=== PATIENT | female | born 1930 | race Caucasian/White ===

== ENCOUNTER 2019-06-27 08:50 | Inpatient (IN) | payer MEDICARE, OTHER ==
[2019-06-27] MEDS: NITROGLYCERIN 2% 1 GM OINT PKT TD (09:15)
[2019-06-27 09:18] LABS: ADD MAN DIFF? NO
[2019-06-27 09:22] LABS: WHITE BLOOD COUNT 8.2 10^3/ul (4.8-10.8)
[2019-06-27 09:22] LABS: BASOPHILS % 0.2 % (0.0-2.0); EOSINOPHILS % 0.1 % (0.0-7.0); HEMATOCRIT 34.1 % (37.0-47.0); HEMOGLOBIN 10.8 g/dl (12.0-16.0); LYMPHOCYTES % 12.1 % (15.0-51.0); MEAN CORPUSCULAR HEMOGLOBIN 30.3 pg (29.0-33.0); MEAN CORPUSCULAR HGB CONC 31.7 g/dl (32.0-37.0); MEAN CORPUSCULAR VOLUME 95.5 fl (82.0-101.0); MEAN PLATELET VOLUME 9.7 fl (7.4-10.4); MONOCYTE # 0.5 10^3/ul (0.3-0.9); MONOCYTES % 6.5 % (0.0-11.0); NEUTROPHIL # 6.5 10^3/ul (1.6-7.5); NEUTROPHILS % 79.9 % (39.0-77.0); PLATELET COUNT 512 10^3/UL (140-415); RED BLOOD COUNT 3.57 10^6/ul (4.20-5.40); RED CELL DISTRIBUTION WIDTH 13.3 % (11.5-14.5)
[2019-06-27 09:42] LABS: INR 1.16; PROTIME 14.9 Sec (11.9-14.9); PT RATIO 1.2
[2019-06-27 09:43] LABS: PARTIAL THROMBOPLASTIN TIME 24.6 Sec (23.0-35.0)
[2019-06-27 09:51] LABS: ALANINE AMINOTRANSFERASE 29 IU/L (13-69); ALBUMIN 3.4 g/dl (3.3-4.9); ALBUMIN/GLOBULIN RATIO 1.06; ALKALINE PHOSPHATASE 52 IU/L (42-121); ANION GAP 8 (5-13); ASPARTATE AMINO TRANSFERASE 18 IU/L (15-46); BILIRUBIN,INDIRECT 0.4 mg/dl (0-1.1); BILIRUBIN,TOTAL 0.4 mg/dl (0.2-1.3); BLOOD UREA NITROGEN 19 mg/dl (7-20); CALCIUM 10.7 mg/dl (8.4-10.2); CARBON DIOXIDE 28 mmol/L (21-31); CHLORIDE 103 mmol/L (97-110); CREATININE 0.61 mg/dl (0.44-1.00); GLUCOSE 279 mg/dl (70-220); SODIUM 139 mmol/L (135-144); TOTAL PROTEIN 6.6 g/dl (6.1-8.1)
[2019-06-27] MEDS: FUROSEMIDE 40 MG INJ IV (09:58)
[2019-06-27 10:02] LABS: B-TYPE NATRIURETIC PEPTIDE 13000 PG/ML (0-450); TROPONIN-I 0.028 ng/ml (0.000-0.120)
[2019-06-27 11:27] LABS: LACTIC ACID 2.3 mmol/L (0.5-2.0)
[2019-06-27] MEDS ORDERED: ONDANSETRON 4 MG INJ IV ×2 (11:30→14:00)
[2019-06-27] MEDS ORDERED: ACETAMINOPHEN 325 MG TAB PO (11:30)
[2019-06-27] MEDS ORDERED: NACL 0.9% 3 ML SYG IV (14:00)
[2019-06-27] MEDS ORDERED: ZOLPIDEM 5 MG TAB PO (14:00)
[2019-06-27] MEDS ORDERED: HYDROCODONE/APAP (5/325) TAB PO (14:00)
[2019-06-27] MEDS ORDERED: BISACODYL 10 MG SUPP PR (14:00)
[2019-06-27] MEDS ORDERED: GLUCOSE GEL 15 GRAM TUBE BUCCAL (15:00)
[2019-06-27] MEDS ORDERED: GLUCAGON 1 MG INJ IM (15:00)
[2019-06-27] MEDS ORDERED: DEXTROSE 50% 50 ML SYRINGE IV (15:00)
[2019-06-27] MEDS ORDERED: GLUCOSE GEL 15 GRAM TUBE PO ×2 (15:00)
[2019-06-27 16:14] LABS: CREATINE KINASE 40 IU/L (23-200)
[2019-06-27 16:14] LABS: LACTIC ACID 1.1 mmol/L (0.5-2.0)
[2019-06-27 16:23] LABS: CK INDEX 9.7; CK-MB 3.89 ng/ml (0.0-2.4); TROPONIN-I 0.036 ng/ml (0.000-0.120)
[2019-06-27] MEDS: INSULIN ASPART [NOVOLOG] 3 ML PEN SC ×2 (16:46→21:04)
[2019-06-27] MEDS ORDERED: INSULIN ASPART [NOVOLOG] 3 ML PEN SC (18:00)
[2019-06-27] MEDS: SPIRONOLACTONE 25 MG TAB PO (18:24)
[2019-06-27] MEDS: FUROSEMIDE 20 MG INJ IV (18:24)
[2019-06-27] MEDS: APIXABAN 5 MG TABLET PO (20:56)
[2019-06-27] MEDS: METOPROLOL (XL) 25 MG TAB PO (20:56)
[2019-06-27] MEDS: INSULIN GLARGINE [LANTus] (100 UNITS/ML) SYG SC (21:04)
[2019-06-27 22:23] LABS: CREATINE KINASE 31 IU/L (23-200)
[2019-06-27 22:36] LABS: CK INDEX 9.4; TROPONIN-I 0.044 ng/ml (0.000-0.120)
[2019-06-27 23:12] LABS: PROCALCITONIN 1.11 ng/mL (0.00-0.10)
[2019-06-28] MEDS ORDERED: ACCU-CHEK XX (02:00)
[2019-06-28] MEDS: INSULIN ASPART [NOVOLOG] 3 ML PEN SC ×6 (02:08→21:17)
[2019-06-28] MEDS: ACCU-CHEK XX (02:08)
[2019-06-28] MEDS: FUROSEMIDE 20 MG INJ IV ×2 (05:29→17:23)
[2019-06-28 06:17] LABS: ADD MAN DIFF? NO
[2019-06-28 06:27] LABS: WHITE BLOOD COUNT 7.1 10^3/ul (4.8-10.8)
[2019-06-28 06:27] LABS: BASOPHILS % 0.6 % (0.0-2.0); EOSINOPHILS # 0.1 10^3/ul (0.0-0.5); EOSINOPHILS % 1.5 % (0.0-7.0); HEMATOCRIT 32.2 % (37.0-47.0); HEMOGLOBIN 10.4 g/dl (12.0-16.0); LYMPHOCYTES # 1.7 10^3/ul (0.8-2.9); LYMPHOCYTES % 23.8 % (15.0-51.0); MEAN CORPUSCULAR HEMOGLOBIN 30.1 pg (29.0-33.0); MEAN CORPUSCULAR HGB CONC 32.3 g/dl (32.0-37.0); MEAN CORPUSCULAR VOLUME 93.1 fl (82.0-101.0); MEAN PLATELET VOLUME 9.5 fl (7.4-10.4); MONOCYTE # 0.6 10^3/ul (0.3-0.9); MONOCYTES % 8.5 % (0.0-11.0); NEUTROPHIL # 4.6 10^3/ul (1.6-7.5); NEUTROPHILS % 64.8 % (39.0-77.0); PLATELET COUNT 502 10^3/UL (140-415); RED BLOOD COUNT 3.46 10^6/ul (4.20-5.40); RED CELL DISTRIBUTION WIDTH 13.5 % (11.5-14.5)
[2019-06-28 06:47] LABS: MAGNESIUM 1.4 mg/dl (1.7-2.5)
[2019-06-28 06:47] LABS: PHOSPHORUS 3.1 mg/dl (2.5-4.9)
[2019-06-28 06:53] LABS: ALANINE AMINOTRANSFERASE 29 IU/L (13-69); ALBUMIN 3.2 g/dl (3.3-4.9); ALKALINE PHOSPHATASE 49 IU/L (42-121); ANION GAP 5 (5-13); ASPARTATE AMINO TRANSFERASE 17 IU/L (15-46); BILIRUBIN,INDIRECT 0.6 mg/dl (0-1.1); BILIRUBIN,TOTAL 0.6 mg/dl (0.2-1.3); BLOOD UREA NITROGEN 16 mg/dl (7-20); CALCIUM 10.3 mg/dl (8.4-10.2); CARBON DIOXIDE 36 mmol/L (21-31); CHLORIDE 97 mmol/L (97-110); CREATININE 0.64 mg/dl (0.44-1.00); GLUCOSE 172 mg/dl (70-220); POTASSIUM 3.4 mmol/L (3.5-5.1); SODIUM 138 mmol/L (135-144); TOTAL PROTEIN 6.1 g/dl (6.1-8.1)
[2019-06-28 06:56] LABS: B-TYPE NATRIURETIC PEPTIDE 13000 PG/ML (0-450)
[2019-06-28 06:59] LABS: DIGOXIN < 0.4 ng/ml (1.0-2.0)
[2019-06-28 07:06] LABS: FREE T4 (FREE THYROXINE) 1.35 ng/dl (0.85-1.93)
[2019-06-28 07:18] LABS: THYROID STIMULATING HORMONE 0.419 MIU/L (0.465-4.680)
[2019-06-28] MEDS: METOPROLOL (XL) 25 MG TAB PO ×2 (08:09→21:00)
[2019-06-28] MEDS: DONEPEZIL 10 MG TAB PO (08:10)
[2019-06-28] MEDS: LOSARTAN 50 MG TAB PO ×2 (08:10→21:00)
[2019-06-28] MEDS: OXYBUTYNIN (XL) 5 MG TAB PO (08:10)
[2019-06-28] MEDS: SPIRONOLACTONE 25 MG TAB PO (08:10)
[2019-06-28] MEDS: ESCITALOPRAM 10 MG TAB PO (08:10)
[2019-06-28] MEDS: MEMANTINE 10 MG TAB PO (08:10)
[2019-06-28] MEDS: ASPIRIN (EC) 81 MG TAB PO (08:11)
[2019-06-28] MEDS: LEVOTHYROXINE 75 MCG TAB PO (08:11)
[2019-06-28] MEDS: APIXABAN 5 MG TABLET PO ×2 (08:11→21:00)
[2019-06-28] MEDS ORDERED: ENOXAPARIN 40 MG/0.4 ML SYG SC (09:00)
[2019-06-28] MEDS ORDERED: AMLODIPINE 5 MG TAB PO (09:00)
[2019-06-28] MEDS: ACETAMINOPHEN 325 MG TAB PO (09:13)
[2019-06-28 09:17] LABS: HEMOGLOBIN A1C 7.2 % (0-5.9)
[2019-06-28] MEDS: morphine 2 MG INJ IV (10:33)
[2019-06-28 12:27] LABS: TROPONIN-I 0.029 ng/ml (0.000-0.120)
[2019-06-28] MEDS: INSULIN GLARGINE [LANTus] (100 UNITS/ML) SYG SC (21:17)
[2019-06-29] MEDS: FUROSEMIDE 20 MG INJ IV ×4 (00:39→21:29)
[2019-06-29] MEDS: INSULIN ASPART [NOVOLOG] 3 ML PEN SC ×6 (01:01→20:58)
[2019-06-29] MEDS: ACCU-CHEK XX (01:03)
[2019-06-29 06:06] LABS: ADD MAN DIFF? NO
[2019-06-29 06:13] LABS: BASOPHILS % 0.6 % (0.0-2.0); EOSINOPHILS # 0.2 10^3/ul (0.0-0.5); EOSINOPHILS % 2.3 % (0.0-7.0); HEMOGLOBIN 10.7 g/dl (12.0-16.0); LYMPHOCYTES # 1.8 10^3/ul (0.8-2.9); LYMPHOCYTES % 26.5 % (15.0-51.0); MEAN CORPUSCULAR HEMOGLOBIN 30.3 pg (29.0-33.0); MEAN CORPUSCULAR HGB CONC 32.4 g/dl (32.0-37.0); MEAN CORPUSCULAR VOLUME 93.5 fl (82.0-101.0); MEAN PLATELET VOLUME 9.2 fl (7.4-10.4); MONOCYTE # 0.6 10^3/ul (0.3-0.9); MONOCYTES % 9.2 % (0.0-11.0); NEUTROPHIL # 4.2 10^3/ul (1.6-7.5); NEUTROPHILS % 60.8 % (39.0-77.0); PLATELET COUNT 474 10^3/UL (140-415); RED BLOOD COUNT 3.53 10^6/ul (4.20-5.40); RED CELL DISTRIBUTION WIDTH 13.8 % (11.5-14.5)
[2019-06-29 06:13] LABS: WHITE BLOOD COUNT 6.9 10^3/ul (4.8-10.8)
[2019-06-29 06:32] LABS: MAGNESIUM 1.3 mg/dl (1.7-2.5)
[2019-06-29 06:32] LABS: PHOSPHORUS 3.5 mg/dl (2.5-4.9)
[2019-06-29 06:36] LABS: ALANINE AMINOTRANSFERASE 26 IU/L (13-69); ALBUMIN 3.3 g/dl (3.3-4.9); ALBUMIN/GLOBULIN RATIO 1.22; ALKALINE PHOSPHATASE 48 IU/L (42-121); ANION GAP 5 (5-13); ASPARTATE AMINO TRANSFERASE 22 IU/L (15-46); BILIRUBIN,INDIRECT 0.6 mg/dl (0-1.1); BILIRUBIN,TOTAL 0.6 mg/dl (0.2-1.3); BLOOD UREA NITROGEN 15 mg/dl (7-20); CALCIUM 10.5 mg/dl (8.4-10.2); CARBON DIOXIDE 40 mmol/L (21-31); CHLORIDE 92 mmol/L (97-110); CREATININE 0.62 mg/dl (0.44-1.00); GLUCOSE 164 mg/dl (70-220); POTASSIUM 3.2 mmol/L (3.5-5.1); SODIUM 137 mmol/L (135-144)
[2019-06-29 06:45] LABS: TROPONIN-I 0.043 ng/ml (0.000-0.120)
[2019-06-29 06:58] LABS: FREE T4 (FREE THYROXINE) 1.18 ng/dl (0.85-1.93)
[2019-06-29 07:04] LABS: TRIIODOTHYRONINE 0.43 ng/ml (0.97-1.69)
[2019-06-29 07:48] LABS: B-TYPE NATRIURETIC PEPTIDE 15300 PG/ML (0-450)
[2019-06-29] MEDS: LEVOTHYROXINE 75 MCG TAB PO ×2 (08:29→09:50)
[2019-06-29] MEDS: DONEPEZIL 10 MG TAB PO (08:30)
[2019-06-29] MEDS: APIXABAN 5 MG TABLET PO ×2 (08:30→09:50)
[2019-06-29] MEDS: OXYBUTYNIN (XL) 5 MG TAB PO ×2 (08:30→09:50)
[2019-06-29] MEDS: LOSARTAN 50 MG TAB PO ×3 (08:30→20:54)
[2019-06-29] MEDS: SPIRONOLACTONE 25 MG TAB PO ×2 (08:30→09:48)
[2019-06-29] MEDS: METOPROLOL (XL) 25 MG TAB PO ×3 (08:31→20:54)
[2019-06-29] MEDS: MEMANTINE 10 MG TAB PO (08:31)
[2019-06-29] MEDS: ESCITALOPRAM 10 MG TAB PO (08:31)
[2019-06-29] MEDS: ASPIRIN (EC) 81 MG TAB PO ×2 (08:31→09:49)
[2019-06-29] MEDS: POTASSIUM CHLORIDE 100 ML IVPB ×2 (09:53→12:13)
[2019-06-29] MEDS: MAGNESIUM SULFATE 4 GM/100 ML 100 ML IVPB (11:52)
[2019-06-29] MEDS: INSULIN GLARGINE [LANTus] (100 UNITS/ML) SYG SC (20:58)
[2019-06-30] MEDS: INSULIN ASPART [NOVOLOG] 3 ML PEN SC ×8 (01:31→23:28)
[2019-06-30] MEDS: ACCU-CHEK XX ×2 (01:31→23:03)
[2019-06-30] MEDS: MAGNESIUM SULFATE 1 GM/D5W 100 ML IVPB (04:25)
[2019-06-30] MEDS: POTASSIUM CHLORIDE 100 ML IVPB ×2 (04:55→19:12)
[2019-06-30] MEDS ORDERED: POTASSIUM CHLORIDE 100 ML IVPB (05:00)
[2019-06-30] MEDS: FUROSEMIDE 20 MG INJ IV ×3 (05:38→21:20)
[2019-06-30] MEDS: LEVOTHYROXINE 75 MCG TAB PO (06:06)
[2019-06-30 06:56] LABS: ALANINE AMINOTRANSFERASE 23 IU/L (13-69); ALBUMIN 2.9 g/dl (3.3-4.9); ALBUMIN/GLOBULIN RATIO 1.03; ALKALINE PHOSPHATASE 44 IU/L (42-121); ASPARTATE AMINO TRANSFERASE 19 IU/L (15-46); B-TYPE NATRIURETIC PEPTIDE 10400 PG/ML (0-450); BILIRUBIN,INDIRECT 0.6 mg/dl (0-1.1); BILIRUBIN,TOTAL 0.6 mg/dl (0.2-1.3); BLOOD UREA NITROGEN 18 mg/dl (7-20); CALCIUM 9.9 mg/dl (8.4-10.2); CHLORIDE 90 mmol/L (97-110); GLUCOSE 136 mg/dl (70-220); MAGNESIUM 2.6 mg/dl (1.7-2.5); POTASSIUM 3.2 mmol/L (3.5-5.1); SODIUM 135 mmol/L (135-144); TOTAL PROTEIN 5.7 g/dl (6.1-8.1)
[2019-06-30 07:11] LABS: ANION GAP 6 (5-13); CARBON DIOXIDE 39 mmol/L (21-31)
[2019-06-30] MEDS: POTASSIUM CHLORIDE 20 MEQ POWDER FOR ORAL SOLN PO ×2 (08:41→20:37)
[2019-06-30] MEDS: METOPROLOL (XL) 50 MG TAB PO ×2 (08:42→20:37)
[2019-06-30] MEDS: BALSAM PERU/CASTOR OIL 60 GM TUBE TOP ×3 (08:53→20:51)
[2019-06-30] MEDS ORDERED: POTASSIUM CHLORIDE (SR) 20 MEQ TAB PO (09:00)
[2019-06-30] MEDS: LOSARTAN 50 MG TAB PO ×2 (10:04→20:37)
[2019-06-30] MEDS: OXYBUTYNIN (XL) 5 MG TAB PO (10:04)
[2019-06-30] MEDS: ASPIRIN (EC) 81 MG TAB PO (10:04)
[2019-06-30] MEDS: ESCITALOPRAM 10 MG TAB PO (10:04)
[2019-06-30] MEDS: SPIRONOLACTONE 25 MG TAB PO (10:05)
[2019-06-30] MEDS: DONEPEZIL 10 MG TAB PO (10:05)
[2019-06-30] MEDS: MEMANTINE 10 MG TAB PO (10:05)
[2019-06-30] MEDS: APIXABAN 5 MG TABLET PO ×2 (10:07→20:37)
[2019-06-30] MEDS: FAMOTIDINE 20 MG INJ IV (20:37)
[2019-06-30] MEDS: INSULIN GLARGINE [LANTus] (100 UNITS/ML) SYG SC (21:16)
[2019-06-30 21:40] LABS: GLUCOSE 469 mg/dl (70-220)
[2019-07-01] MEDS: ACCU-CHEK XX ×2 (01:36)
[2019-07-01] MEDS: INSULIN ASPART [NOVOLOG] 3 ML PEN SC ×7 (01:42→20:29)
[2019-07-01] MEDS: FUROSEMIDE 20 MG INJ IV ×3 (05:43→21:32)
[2019-07-01 06:28] LABS: ADD MAN DIFF? NO
[2019-07-01 06:42] LABS: BASOPHILS % 0.1 % (0.0-2.0); EOSINOPHILS # 0.1 10^3/ul (0.0-0.5); EOSINOPHILS % 0.6 % (0.0-7.0); HEMATOCRIT 34.8 % (37.0-47.0); HEMOGLOBIN 11.1 g/dl (12.0-16.0); LYMPHOCYTES % 20.5 % (15.0-51.0); MEAN CORPUSCULAR HEMOGLOBIN 30.2 pg (29.0-33.0); MEAN CORPUSCULAR HGB CONC 31.9 g/dl (32.0-37.0); MEAN CORPUSCULAR VOLUME 94.6 fl (82.0-101.0); MEAN PLATELET VOLUME 9.2 fl (7.4-10.4); MONOCYTE # 0.7 10^3/ul (0.3-0.9); MONOCYTES % 7.1 % (0.0-11.0); NEUTROPHIL # 6.9 10^3/ul (1.6-7.5); PLATELET COUNT 446 10^3/UL (140-415); RED BLOOD COUNT 3.68 10^6/ul (4.20-5.40); RED CELL DISTRIBUTION WIDTH 14.6 % (11.5-14.5)
[2019-07-01 06:42] LABS: WHITE BLOOD COUNT 9.7 10^3/ul (4.8-10.8)
[2019-07-01 07:05] LABS: ALANINE AMINOTRANSFERASE 56 IU/L (13-69); ALBUMIN 3.3 g/dl (3.3-4.9); ALBUMIN/GLOBULIN RATIO 1.17; ALKALINE PHOSPHATASE 52 IU/L (42-121); ANION GAP 5 (5-13); ASPARTATE AMINO TRANSFERASE 60 IU/L (15-46); BILIRUBIN,INDIRECT 0.6 mg/dl (0-1.1); BILIRUBIN,TOTAL 0.6 mg/dl (0.2-1.3); BLOOD UREA NITROGEN 21 mg/dl (7-20); CALCIUM 10.4 mg/dl (8.4-10.2); CARBON DIOXIDE 40 mmol/L (21-31); CHLORIDE 92 mmol/L (97-110); CREATININE 0.87 mg/dl (0.44-1.00); GLUCOSE 134 mg/dl (70-220); MAGNESIUM 1.9 mg/dl (1.7-2.5); POTASSIUM 4.2 mmol/L (3.5-5.1); SODIUM 137 mmol/L (135-144); TOTAL PROTEIN 6.1 g/dl (6.1-8.1)
[2019-07-01 07:08] LABS: B-TYPE NATRIURETIC PEPTIDE 7950 PG/ML (0-450)
[2019-07-01] MEDS: LEVOTHYROXINE 75 MCG TAB PO (07:20)
[2019-07-01] MEDS: FAMOTIDINE 20 MG INJ IV (08:21)
[2019-07-01] MEDS: ESCITALOPRAM 10 MG TAB PO (08:22)
[2019-07-01] MEDS: OXYBUTYNIN (XL) 5 MG TAB PO (08:23)
[2019-07-01] MEDS: APIXABAN 5 MG TABLET PO ×2 (08:23→20:16)
[2019-07-01] MEDS: SPIRONOLACTONE 25 MG TAB PO (08:24)
[2019-07-01] MEDS: DONEPEZIL 10 MG TAB PO (08:24)
[2019-07-01] MEDS: METOPROLOL (XL) 50 MG TAB PO ×2 (08:24→20:16)
[2019-07-01] MEDS: ASPIRIN (EC) 81 MG TAB PO (08:25)
[2019-07-01] MEDS: LOSARTAN 50 MG TAB PO ×2 (08:25→20:17)
[2019-07-01] MEDS: MEMANTINE 10 MG TAB PO (08:25)
[2019-07-01] MEDS: BALSAM PERU/CASTOR OIL 60 GM TUBE TOP ×3 (08:25→20:17)
[2019-07-01] MEDS: INSULIN GLARGINE [LANTus] (100 UNITS/ML) SYG SC (20:29)
[2019-07-02] MEDS: INSULIN ASPART [NOVOLOG] 3 ML PEN SC ×9 (00:36→21:00)
[2019-07-02] MEDS: ACCU-CHEK XX (00:37)
[2019-07-02] MEDS: FUROSEMIDE 20 MG INJ IV ×2 (05:37→15:05)
[2019-07-02 05:47] LABS: ADD MAN DIFF? NO
[2019-07-02 05:50] LABS: BASOPHILS % 0.4 % (0.0-2.0); EOSINOPHILS # 0.2 10^3/ul (0.0-0.5); EOSINOPHILS % 2.3 % (0.0-7.0); HEMATOCRIT 34.9 % (37.0-47.0); HEMOGLOBIN 10.9 g/dl (12.0-16.0); LYMPHOCYTES # 2.6 10^3/ul (0.8-2.9); LYMPHOCYTES % 29.3 % (15.0-51.0); MEAN CORPUSCULAR HEMOGLOBIN 30.2 pg (29.0-33.0); MEAN CORPUSCULAR HGB CONC 31.2 g/dl (32.0-37.0); MEAN CORPUSCULAR VOLUME 96.7 fl (82.0-101.0); MEAN PLATELET VOLUME 9.1 fl (7.4-10.4); MONOCYTE # 0.5 10^3/ul (0.3-0.9); MONOCYTES % 5.9 % (0.0-11.0); NEUTROPHIL # 5.5 10^3/ul (1.6-7.5); NEUTROPHILS % 61.3 % (39.0-77.0); PLATELET COUNT 465 10^3/UL (140-415); RED BLOOD COUNT 3.61 10^6/ul (4.20-5.40); RED CELL DISTRIBUTION WIDTH 14.5 % (11.5-14.5)
[2019-07-02 06:27] LABS: B-TYPE NATRIURETIC PEPTIDE 5080 PG/ML (0-450)
[2019-07-02 06:36] LABS: ALANINE AMINOTRANSFERASE 51 IU/L (13-69); ALBUMIN 2.8 g/dl (3.3-4.9); ALKALINE PHOSPHATASE 44 IU/L (42-121); ASPARTATE AMINO TRANSFERASE 40 IU/L (15-46); BILIRUBIN,INDIRECT 0.5 mg/dl (0-1.1); BILIRUBIN,TOTAL 0.5 mg/dl (0.2-1.3); BLOOD UREA NITROGEN 19 mg/dl (7-20); CHLORIDE 89 mmol/L (97-110); CREATININE 0.74 mg/dl (0.44-1.00); GLUCOSE 86 mg/dl (70-220); MAGNESIUM 1.6 mg/dl (1.7-2.5); POTASSIUM 3.8 mmol/L (3.5-5.1); SODIUM 134 mmol/L (135-144); TOTAL PROTEIN 5.6 g/dl (6.1-8.1)
[2019-07-02] MEDS: LEVOTHYROXINE 75 MCG TAB PO (06:41)
[2019-07-02 06:59] LABS: ANION GAP 4 (5-13)
[2019-07-02 07:01] LABS: CARBON DIOXIDE 41 mmol/L (21-31)
[2019-07-02] MEDS: ESCITALOPRAM 10 MG TAB PO (08:44)
[2019-07-02] MEDS: ASPIRIN (EC) 81 MG TAB PO (08:44)
[2019-07-02] MEDS: MEMANTINE 10 MG TAB PO (08:44)
[2019-07-02] MEDS: LOSARTAN 50 MG TAB PO ×2 (08:45→21:01)
[2019-07-02] MEDS: DONEPEZIL 10 MG TAB PO (08:45)
[2019-07-02] MEDS: OXYBUTYNIN (XL) 5 MG TAB PO (08:45)
[2019-07-02] MEDS: SPIRONOLACTONE 25 MG TAB PO (08:45)
[2019-07-02] MEDS: APIXABAN 5 MG TABLET PO ×2 (08:45→21:01)
[2019-07-02] MEDS: METOPROLOL (XL) 50 MG TAB PO (09:23)
[2019-07-02] MEDS: BALSAM PERU/CASTOR OIL 60 GM TUBE TOP ×3 (15:05→21:02)
[2019-07-02] MEDS: MAGNESIUM SULFATE 2 GM/50 ML 50 ML IVPB (17:35)
[2019-07-02] MEDS: ACETAZOLAMIDE 500 MG INJ IV (19:45)
[2019-07-02] MEDS: INSULIN GLARGINE [LANTus] (100 UNITS/ML) SYG SC (23:21)
[2019-07-03] MEDS: INSULIN ASPART [NOVOLOG] 3 ML PEN SC ×9 (01:00→22:38)
[2019-07-03] MEDS: ACCU-CHEK XX (02:00)
[2019-07-03] MEDS: LEVOTHYROXINE 75 MCG TAB PO (06:26)
[2019-07-03 06:48] LABS: B-TYPE NATRIURETIC PEPTIDE 3500 PG/ML (0-450)
[2019-07-03 07:10] LABS: ANION GAP 6 (5-13); BLOOD UREA NITROGEN 24 mg/dl (7-20); CALCIUM 10.1 mg/dl (8.4-10.2); CARBON DIOXIDE 36 mmol/L (21-31); CHLORIDE 90 mmol/L (97-110); CREATININE 0.97 mg/dl (0.44-1.00); GLUCOSE 125 mg/dl (70-220); POTASSIUM 3.6 mmol/L (3.5-5.1); SODIUM 132 mmol/L (135-144)
[2019-07-03] MEDS: APIXABAN 5 MG TABLET PO ×2 (08:21→20:47)
[2019-07-03] MEDS: LOSARTAN 50 MG TAB PO ×2 (08:21→20:47)
[2019-07-03] MEDS: DONEPEZIL 10 MG TAB PO (08:21)
[2019-07-03] MEDS: ESCITALOPRAM 10 MG TAB PO (08:21)
[2019-07-03] MEDS: ASPIRIN (EC) 81 MG TAB PO (08:22)
[2019-07-03] MEDS: SPIRONOLACTONE 25 MG TAB PO (08:22)
[2019-07-03] MEDS: MEMANTINE 10 MG TAB PO (08:22)
[2019-07-03] MEDS: FUROSEMIDE 20 MG INJ IV ×3 (08:46→20:48)
[2019-07-03] MEDS: OXYBUTYNIN (XL) 5 MG TAB PO (08:47)
[2019-07-03] MEDS: BALSAM PERU/CASTOR OIL 60 GM TUBE TOP ×3 (08:48→20:49)
[2019-07-03] MEDS: POTASSIUM CHLORIDE 100 ML IVPB ×2 (19:37→22:44)
[2019-07-03] MEDS: ACETAZOLAMIDE 500 MG INJ IV (19:38)
[2019-07-03] MEDS: MIRTAZAPINE 15 MG TAB PO (20:47)
[2019-07-03] MEDS: INSULIN GLARGINE [LANTus] (100 UNITS/ML) SYG SC (22:37)
[2019-07-04] MEDS: INSULIN ASPART [NOVOLOG] 3 ML PEN SC ×9 (01:20→21:00)
[2019-07-04] MEDS: ACCU-CHEK XX (02:00)
[2019-07-04 05:58] LABS: ADD MAN DIFF? NO
[2019-07-04 06:13] LABS: BASOPHILS % 0.3 % (0.0-2.0); EOSINOPHILS # 0.2 10^3/ul (0.0-0.5); HEMATOCRIT 35.1 % (37.0-47.0); HEMOGLOBIN 11.2 g/dl (12.0-16.0); LYMPHOCYTES % 21.9 % (15.0-51.0); MEAN CORPUSCULAR HEMOGLOBIN 30.5 pg (29.0-33.0); MEAN CORPUSCULAR HGB CONC 31.9 g/dl (32.0-37.0); MEAN CORPUSCULAR VOLUME 95.6 fl (82.0-101.0); MEAN PLATELET VOLUME 9.6 fl (7.4-10.4); MONOCYTE # 0.5 10^3/ul (0.3-0.9); MONOCYTES % 5.8 % (0.0-11.0); NEUTROPHIL # 6.4 10^3/ul (1.6-7.5); NEUTROPHILS % 69.2 % (39.0-77.0); PLATELET COUNT 404 10^3/UL (140-415); RED BLOOD COUNT 3.67 10^6/ul (4.20-5.40); RED CELL DISTRIBUTION WIDTH 14.3 % (11.5-14.5)
[2019-07-04 06:13] LABS: WHITE BLOOD COUNT 9.2 10^3/ul (4.8-10.8)
[2019-07-04 06:41] LABS: B-TYPE NATRIURETIC PEPTIDE 1590 PG/ML (0-450)
[2019-07-04] MEDS: LEVOTHYROXINE 75 MCG TAB PO (06:42)
[2019-07-04 06:43] LABS: ALANINE AMINOTRANSFERASE 35 IU/L (13-69); ALBUMIN 2.8 g/dl (3.3-4.9); ALBUMIN/GLOBULIN RATIO 1.03; ALKALINE PHOSPHATASE 51 IU/L (42-121); ANION GAP 7 (5-13); ASPARTATE AMINO TRANSFERASE 25 IU/L (15-46); BILIRUBIN,INDIRECT 0.3 mg/dl (0-1.1); BILIRUBIN,TOTAL 0.3 mg/dl (0.2-1.3); BLOOD UREA NITROGEN 30 mg/dl (7-20); CALCIUM 9.9 mg/dl (8.4-10.2); CARBON DIOXIDE 30 mmol/L (21-31); CHLORIDE 92 mmol/L (97-110); CREATININE 1.15 mg/dl (0.44-1.00); GLUCOSE 237 mg/dl (70-220); MAGNESIUM 2.2 mg/dl (1.7-2.5); POTASSIUM 4.7 mmol/L (3.5-5.1); SODIUM 129 mmol/L (135-144); TOTAL PROTEIN 5.5 g/dl (6.1-8.1)
[2019-07-04] MEDS: MIRTAZAPINE 15 MG TAB PO ×2 (09:00→21:00)
[2019-07-04] MEDS: APIXABAN 5 MG TABLET PO ×2 (10:48→21:00)
[2019-07-04] MEDS: FUROSEMIDE 20 MG INJ IV (10:48)
[2019-07-04] MEDS: MEMANTINE 10 MG TAB PO (10:49)
[2019-07-04] MEDS: OXYBUTYNIN (XL) 5 MG TAB PO (10:49)
[2019-07-04] MEDS: SPIRONOLACTONE 25 MG TAB PO (10:49)
[2019-07-04] MEDS: DONEPEZIL 10 MG TAB PO (10:50)
[2019-07-04] MEDS: LOSARTAN 50 MG TAB PO ×2 (10:50→21:00)
[2019-07-04] MEDS: ASPIRIN (EC) 81 MG TAB PO (10:50)
[2019-07-04] MEDS: ESCITALOPRAM 10 MG TAB PO (10:50)
[2019-07-04] MEDS: BALSAM PERU/CASTOR OIL 60 GM TUBE TOP ×3 (10:51→21:03)
[2019-07-04] MEDS: SOD CHLORIDE 0.9% 250 ML IV (14:30)
[2019-07-04] MEDS: DEXTROSE 50% 50 ML SYRINGE IV (18:43)
[2019-07-04] MEDS: SOD CHLORIDE 0.9% 1,000 ML IV (18:50)
[2019-07-05] MEDS: INSULIN ASPART [NOVOLOG] 3 ML PEN SC ×9 (01:00→21:00)
[2019-07-05] MEDS: ACCU-CHEK XX (02:00)
[2019-07-05 05:39] LABS: ADD MAN DIFF? NO
[2019-07-05 06:08] LABS: MAGNESIUM 2.2 mg/dl (1.7-2.5)
[2019-07-05 06:11] LABS: BASOPHIL # 0.1 10^3/ul (0.0-0.1); BASOPHILS % 0.6 % (0.0-2.0); EOSINOPHILS # 0.2 10^3/ul (0.0-0.5); EOSINOPHILS % 2.2 % (0.0-7.0); HEMATOCRIT 40.9 % (37.0-47.0); LYMPHOCYTES # 2.4 10^3/ul (0.8-2.9); LYMPHOCYTES % 27.3 % (15.0-51.0); MEAN CORPUSCULAR HEMOGLOBIN 29.9 pg (29.0-33.0); MEAN CORPUSCULAR HGB CONC 31.8 g/dl (32.0-37.0); MEAN PLATELET VOLUME 10.4 fl (7.4-10.4); MONOCYTE # 0.6 10^3/ul (0.3-0.9); MONOCYTES % 6.9 % (0.0-11.0); NEUTROPHIL # 5.6 10^3/ul (1.6-7.5); NEUTROPHILS % 62.4 % (39.0-77.0); PLATELET COUNT 304 10^3/UL (140-415); RED BLOOD COUNT 4.35 10^6/ul (4.20-5.40); RED CELL DISTRIBUTION WIDTH 14.6 % (11.5-14.5)
[2019-07-05 06:11] LABS: WHITE BLOOD COUNT 8.9 10^3/ul (4.8-10.8)
[2019-07-05 06:20] LABS: TROPONIN-I 0.028 ng/ml (0.000-0.120)
[2019-07-05 06:21] LABS: DIGOXIN < 0.4 ng/ml (1.0-2.0)
[2019-07-05 06:37] LABS: ALANINE AMINOTRANSFERASE 27 IU/L (13-69); ALBUMIN 3.3 g/dl (3.3-4.9); ALKALINE PHOSPHATASE 59 IU/L (42-121); ANION GAP 7 (5-13); ASPARTATE AMINO TRANSFERASE 20 IU/L (15-46); BILIRUBIN,INDIRECT 0.4 mg/dl (0-1.1); BILIRUBIN,TOTAL 0.4 mg/dl (0.2-1.3); BLOOD UREA NITROGEN 23 mg/dl (7-20); CALCIUM 10.6 mg/dl (8.4-10.2); CARBON DIOXIDE 28 mmol/L (21-31); CHLORIDE 102 mmol/L (97-110); CREATININE 1.04 mg/dl (0.44-1.00); GLUCOSE 121 mg/dl (70-220); POTASSIUM 4.6 mmol/L (3.5-5.1); SODIUM 137 mmol/L (135-144); TOTAL PROTEIN 6.3 g/dl (6.1-8.1)
[2019-07-05] MEDS: LEVOTHYROXINE 75 MCG TAB PO (08:20)
[2019-07-05] MEDS: ASPIRIN (EC) 81 MG TAB PO (08:23)
[2019-07-05] MEDS: OXYBUTYNIN (XL) 5 MG TAB PO (08:23)
[2019-07-05] MEDS: APIXABAN 5 MG TABLET PO ×2 (08:23→21:08)
[2019-07-05] MEDS: MIRTAZAPINE 15 MG TAB PO ×2 (08:24→21:07)
[2019-07-05] MEDS: MEMANTINE 10 MG TAB PO (08:24)
[2019-07-05] MEDS: ESCITALOPRAM 10 MG TAB PO (08:24)
[2019-07-05] MEDS: DONEPEZIL 10 MG TAB PO (08:24)
[2019-07-05] MEDS: LOSARTAN 50 MG TAB PO ×2 (08:25→21:09)
[2019-07-05] MEDS: BALSAM PERU/CASTOR OIL 60 GM TUBE TOP ×3 (08:26→21:19)
[2019-07-05] MEDS: SOD CHLORIDE 0.9% 1,000 ML IV (17:14)
[2019-07-05] MEDS: INSULIN GLARGINE [LANTus] (100 UNITS/ML) SYG SC (22:19)
[2019-07-06] MEDS: INSULIN ASPART [NOVOLOG] 3 ML PEN SC ×9 (01:00→21:33)
[2019-07-06] MEDS: ACCU-CHEK XX (02:00)
[2019-07-06 07:14] LABS: ALANINE AMINOTRANSFERASE 31 IU/L (13-69); ALBUMIN 2.9 g/dl (3.3-4.9); ALKALINE PHOSPHATASE 54 IU/L (42-121); ANION GAP 3 (5-13); ASPARTATE AMINO TRANSFERASE 22 IU/L (15-46); BILIRUBIN,INDIRECT 0.7 mg/dl (0-1.1); BILIRUBIN,TOTAL 0.7 mg/dl (0.2-1.3); BLOOD UREA NITROGEN 18 mg/dl (7-20); CALCIUM 9.9 mg/dl (8.4-10.2); CARBON DIOXIDE 29 mmol/L (21-31); CHLORIDE 103 mmol/L (97-110); CREATININE 0.93 mg/dl (0.44-1.00); GLUCOSE 120 mg/dl (70-220); POTASSIUM 4.8 mmol/L (3.5-5.1); SODIUM 135 mmol/L (135-144); TOTAL PROTEIN 5.8 g/dl (6.1-8.1)
[2019-07-06] MEDS: LEVOTHYROXINE 75 MCG TAB PO (07:47)
[2019-07-06] MEDS: FUROSEMIDE 20 MG INJ IV ×2 (07:58→21:14)
[2019-07-06] MEDS: ESCITALOPRAM 10 MG TAB PO (08:42)
[2019-07-06] MEDS: DONEPEZIL 10 MG TAB PO (08:43)
[2019-07-06] MEDS: OXYBUTYNIN (XL) 5 MG TAB PO (08:43)
[2019-07-06] MEDS: MIRTAZAPINE 15 MG TAB PO ×2 (08:43→21:12)
[2019-07-06] MEDS: ASPIRIN (EC) 81 MG TAB PO (08:43)
[2019-07-06] MEDS: APIXABAN 5 MG TABLET PO ×2 (08:43→21:13)
[2019-07-06] MEDS: MEMANTINE 10 MG TAB PO (08:44)
[2019-07-06] MEDS: LOSARTAN 50 MG TAB PO ×2 (08:45→21:13)
[2019-07-06] MEDS: BALSAM PERU/CASTOR OIL 60 GM TUBE TOP ×3 (08:48→21:58)
[2019-07-06] MEDS: SOD CHLORIDE 0.9% 1,000 ML IV (16:31)
[2019-07-06] MEDS: INSULIN GLARGINE [LANTus] (100 UNITS/ML) SYG SC (21:33)
[2019-07-07] MEDS: INSULIN ASPART [NOVOLOG] 3 ML PEN SC ×8 (01:00→17:50)
[2019-07-07] MEDS: ACCU-CHEK XX (02:02)
[2019-07-07] MEDS: LEVOTHYROXINE 75 MCG TAB PO (06:29)
[2019-07-07] MEDS: ASPIRIN (EC) 81 MG TAB PO (08:47)
[2019-07-07] MEDS: ESCITALOPRAM 10 MG TAB PO (08:47)
[2019-07-07] MEDS: APIXABAN 5 MG TABLET PO ×2 (08:48→21:07)
[2019-07-07] MEDS: OXYBUTYNIN (XL) 5 MG TAB PO (08:48)
[2019-07-07] MEDS: MEMANTINE 10 MG TAB PO (08:48)
[2019-07-07] MEDS: DONEPEZIL 10 MG TAB PO (08:48)
[2019-07-07] MEDS: LOSARTAN 50 MG TAB PO ×2 (08:48→21:07)
[2019-07-07] MEDS: MIRTAZAPINE 15 MG TAB PO ×2 (08:48→21:08)
[2019-07-07] MEDS: BALSAM PERU/CASTOR OIL 60 GM TUBE TOP ×3 (08:50→21:14)
[2019-07-07] MEDS: FUROSEMIDE 20 MG INJ IV ×2 (08:50→21:06)
[2019-07-07] MEDS: MAGNESIUM HYDROXIDE 30ML CUP PO (12:36)
[2019-07-07] MEDS ORDERED: INSULIN ASPART [NOVOLOG] 3 ML PEN SC (17:30)
[2019-07-07] MEDS: Insulin NOVOLOG SS MILD Algorithm (SS with meals and bedtime) SC ×2 (17:49→21:00)
[2019-07-07] MEDS ORDERED: LOSARTAN 50 MG TAB PO (21:00)
[2019-07-07] MEDS: INSULIN GLARGINE [LANTus] (100 UNITS/ML) SYG SC (21:26)
[2019-07-08] MEDS: ACCU-CHEK XX ×2 (01:49→22:30)
[2019-07-08 05:59] LABS: ADD MAN DIFF? NO
[2019-07-08 06:08] LABS: WHITE BLOOD COUNT 5.8 10^3/ul (4.8-10.8)
[2019-07-08 06:08] LABS: BASOPHIL # 0.1 10^3/ul (0.0-0.1); EOSINOPHILS # 0.1 10^3/ul (0.0-0.5); EOSINOPHILS % 2.3 % (0.0-7.0); HEMATOCRIT 34.6 % (37.0-47.0); HEMOGLOBIN 10.8 g/dl (12.0-16.0); LYMPHOCYTES # 1.7 10^3/ul (0.8-2.9); LYMPHOCYTES % 29.9 % (15.0-51.0); MEAN CORPUSCULAR HEMOGLOBIN 30.3 pg (29.0-33.0); MEAN CORPUSCULAR HGB CONC 31.2 g/dl (32.0-37.0); MEAN CORPUSCULAR VOLUME 97.2 fl (82.0-101.0); MEAN PLATELET VOLUME 9.4 fl (7.4-10.4); MONOCYTE # 0.6 10^3/ul (0.3-0.9); MONOCYTES % 9.9 % (0.0-11.0); NEUTROPHIL # 3.2 10^3/ul (1.6-7.5); NEUTROPHILS % 56.4 % (39.0-77.0); PLATELET COUNT 321 10^3/UL (140-415); RED BLOOD COUNT 3.56 10^6/ul (4.20-5.40); RED CELL DISTRIBUTION WIDTH 14.5 % (11.5-14.5)
[2019-07-08 06:37] LABS: ALANINE AMINOTRANSFERASE 24 IU/L (13-69); ALBUMIN 2.8 g/dl (3.3-4.9); ALKALINE PHOSPHATASE 51 IU/L (42-121); ANION GAP 3 (5-13); ASPARTATE AMINO TRANSFERASE 25 IU/L (15-46); BILIRUBIN,INDIRECT 0.7 mg/dl (0-1.1); BILIRUBIN,TOTAL 0.7 mg/dl (0.2-1.3); BLOOD UREA NITROGEN 17 mg/dl (7-20); CALCIUM 9.7 mg/dl (8.4-10.2); CARBON DIOXIDE 28 mmol/L (21-31); CHLORIDE 102 mmol/L (97-110); CREATININE 0.85 mg/dl (0.44-1.00); GLUCOSE 169 mg/dl (70-220); MAGNESIUM 1.9 mg/dl (1.7-2.5); POTASSIUM 4.6 mmol/L (3.5-5.1); SODIUM 133 mmol/L (135-144); TOTAL PROTEIN 5.6 g/dl (6.1-8.1)
[2019-07-08] MEDS: Insulin NOVOLOG SS MILD Algorithm (SS with meals and bedtime) SC ×4 (06:41→20:56)
[2019-07-08] MEDS: LEVOTHYROXINE 75 MCG TAB PO (06:41)
[2019-07-08 06:47] LABS: B-TYPE NATRIURETIC PEPTIDE 459 PG/ML (0-450)
[2019-07-08] MEDS: INSULIN ASPART [NOVOLOG] 3 ML PEN SC ×4 (08:11→22:35)
[2019-07-08] MEDS: FUROSEMIDE 20 MG INJ IV ×2 (09:40→20:24)
[2019-07-08] MEDS: DONEPEZIL 10 MG TAB PO (09:40)
[2019-07-08] MEDS: APIXABAN 5 MG TABLET PO ×2 (09:40→20:30)
[2019-07-08] MEDS: LOSARTAN 50 MG TAB PO ×2 (09:41→20:33)
[2019-07-08] MEDS: MEMANTINE 10 MG TAB PO (09:41)
[2019-07-08] MEDS: MIRTAZAPINE 15 MG TAB PO ×2 (09:42→20:34)
[2019-07-08] MEDS: ASPIRIN (EC) 81 MG TAB PO (09:42)
[2019-07-08] MEDS: BALSAM PERU/CASTOR OIL 60 GM TUBE TOP ×3 (09:43→20:36)
[2019-07-08] MEDS: OXYBUTYNIN (XL) 5 MG TAB PO (10:18)
[2019-07-08] MEDS: ESCITALOPRAM 20 MG TAB PO (10:21)
[2019-07-08] MEDS: INSULIN GLARGINE [LANTus] (100 UNITS/ML) SYG SC (20:57)
[2019-07-09] MEDS: INSULIN GLARGINE [LANTus] (100 UNITS/ML) SYG SC ×2 (00:30→20:24)
[2019-07-09] MEDS: ACCU-CHEK XX (02:47)
[2019-07-09] MEDS: LEVOTHYROXINE 75 MCG TAB PO (06:47)
[2019-07-09] MEDS: Insulin NOVOLOG SS MILD Algorithm (SS with meals and bedtime) SC ×4 (07:50→20:24)
[2019-07-09] MEDS: INSULIN ASPART [NOVOLOG] 3 ML PEN SC ×3 (07:51→17:29)
[2019-07-09] MEDS: FUROSEMIDE 20 MG INJ IV (07:54)
[2019-07-09] MEDS: ASPIRIN (EC) 81 MG TAB PO (08:18)
[2019-07-09] MEDS: MEMANTINE 10 MG TAB PO (08:18)
[2019-07-09] MEDS: APIXABAN 5 MG TABLET PO ×2 (08:18→20:16)
[2019-07-09] MEDS: OXYBUTYNIN (XL) 5 MG TAB PO (08:18)
[2019-07-09] MEDS: DONEPEZIL 10 MG TAB PO (08:18)
[2019-07-09] MEDS: MIRTAZAPINE 15 MG TAB PO ×2 (08:19→20:16)
[2019-07-09] MEDS: ESCITALOPRAM 20 MG TAB PO (08:19)
[2019-07-09] MEDS: LOSARTAN 50 MG TAB PO ×2 (08:20→20:15)
[2019-07-09] MEDS: BALSAM PERU/CASTOR OIL 60 GM TUBE TOP ×3 (08:22→21:55)
[2019-07-10] MEDS: ACCU-CHEK XX (02:49)
[2019-07-10] MEDS: LEVOTHYROXINE 75 MCG TAB PO (06:45)
[2019-07-10] MEDS: Insulin NOVOLOG SS MILD Algorithm (SS with meals and bedtime) SC ×4 (07:00→20:33)
[2019-07-10] MEDS: INSULIN ASPART [NOVOLOG] 3 ML PEN SC ×3 (07:39→17:42)
[2019-07-10] MEDS: LOSARTAN 50 MG TAB PO ×2 (08:34→20:22)
[2019-07-10] MEDS: OXYBUTYNIN (XL) 5 MG TAB PO (08:35)
[2019-07-10] MEDS: ESCITALOPRAM 20 MG TAB PO (08:35)
[2019-07-10] MEDS: FUROSEMIDE 40 MG TAB PO (08:35)
[2019-07-10] MEDS: DONEPEZIL 10 MG TAB PO (08:35)
[2019-07-10] MEDS: MEMANTINE 10 MG TAB PO (08:35)
[2019-07-10] MEDS: ASPIRIN (EC) 81 MG TAB PO (08:35)
[2019-07-10] MEDS: APIXABAN 5 MG TABLET PO ×2 (08:37→20:23)
[2019-07-10] MEDS: MIRTAZAPINE 15 MG TAB PO ×2 (08:37→20:23)
[2019-07-10] MEDS: BALSAM PERU/CASTOR OIL 60 GM TUBE TOP ×3 (08:38→20:24)
[2019-07-10] MEDS: INSULIN GLARGINE [LANTus] (100 UNITS/ML) SYG SC (20:33)
[2019-07-11] MEDS: ACCU-CHEK XX (01:16)
[2019-07-11] MEDS: LEVOTHYROXINE 75 MCG TAB PO (06:19)
[2019-07-11] MEDS: INSULIN ASPART [NOVOLOG] 3 ML PEN SC ×3 (08:02→16:45)
[2019-07-11] MEDS: Insulin NOVOLOG SS MILD Algorithm (SS with meals and bedtime) SC ×4 (08:03→21:54)
[2019-07-11] MEDS: OXYBUTYNIN (XL) 5 MG TAB PO (09:37)
[2019-07-11] MEDS: MEMANTINE 10 MG TAB PO (09:37)
[2019-07-11] MEDS: ASPIRIN (EC) 81 MG TAB PO (09:38)
[2019-07-11] MEDS: DONEPEZIL 10 MG TAB PO (09:38)
[2019-07-11] MEDS: ESCITALOPRAM 20 MG TAB PO (09:38)
[2019-07-11] MEDS: LOSARTAN 50 MG TAB PO ×2 (09:38→21:31)
[2019-07-11] MEDS: FUROSEMIDE 40 MG TAB PO (09:38)
[2019-07-11] MEDS: MIRTAZAPINE 15 MG TAB PO ×2 (09:38→21:33)
[2019-07-11] MEDS: BALSAM PERU/CASTOR OIL 60 GM TUBE TOP ×3 (09:40→22:21)
[2019-07-11] MEDS: APIXABAN 5 MG TABLET PO ×2 (09:40→21:33)
[2019-07-11] MEDS: INSULIN GLARGINE [LANTus] (100 UNITS/ML) SYG SC (21:55)
[2019-07-12] MEDS: ACCU-CHEK XX (02:31)
[2019-07-12] MEDS: LEVOTHYROXINE 75 MCG TAB PO (06:06)
[2019-07-12] MEDS: Insulin NOVOLOG SS MILD Algorithm (SS with meals and bedtime) SC ×4 (07:51→20:33)
[2019-07-12] MEDS: INSULIN ASPART [NOVOLOG] 3 ML PEN SC ×3 (07:54→17:37)
[2019-07-12] MEDS: APIXABAN 5 MG TABLET PO ×2 (08:13→20:34)
[2019-07-12] MEDS: DONEPEZIL 10 MG TAB PO (08:13)
[2019-07-12] MEDS: MEMANTINE 10 MG TAB PO (08:13)
[2019-07-12] MEDS: MIRTAZAPINE 15 MG TAB PO ×2 (08:14→20:37)
[2019-07-12] MEDS: OXYBUTYNIN (XL) 5 MG TAB PO (08:14)
[2019-07-12] MEDS: ASPIRIN (EC) 81 MG TAB PO (08:14)
[2019-07-12] MEDS: ESCITALOPRAM 20 MG TAB PO (08:14)
[2019-07-12] MEDS: FUROSEMIDE 40 MG TAB PO (08:16)
[2019-07-12] MEDS: LOSARTAN 50 MG TAB PO ×2 (08:16→20:34)
[2019-07-12] MEDS: BALSAM PERU/CASTOR OIL 60 GM TUBE TOP ×3 (08:19→20:37)
[2019-07-12] MEDS: INSULIN GLARGINE [LANTus] (100 UNITS/ML) SYG SC (20:59)
[2019-07-13] MEDS: ACCU-CHEK XX (02:00)
[2019-07-13] MEDS: LEVOTHYROXINE 75 MCG TAB PO (05:42)
[2019-07-13] MEDS: Insulin NOVOLOG SS MILD Algorithm (SS with meals and bedtime) SC ×4 (07:00→21:00)
[2019-07-13] MEDS: INSULIN ASPART [NOVOLOG] 3 ML PEN SC ×3 (07:41→17:22)
[2019-07-13] MEDS: OXYBUTYNIN (XL) 5 MG TAB PO (08:27)
[2019-07-13] MEDS: MEMANTINE 10 MG TAB PO (08:27)
[2019-07-13] MEDS: APIXABAN 5 MG TABLET PO ×2 (08:27→20:36)
[2019-07-13] MEDS: MIRTAZAPINE 15 MG TAB PO ×2 (08:28→20:37)
[2019-07-13] MEDS: DONEPEZIL 10 MG TAB PO (08:28)
[2019-07-13] MEDS: ASPIRIN (EC) 81 MG TAB PO (08:28)
[2019-07-13] MEDS: ESCITALOPRAM 20 MG TAB PO (08:28)
[2019-07-13] MEDS: LOSARTAN 50 MG TAB PO ×2 (08:29→20:36)
[2019-07-13] MEDS: FUROSEMIDE 40 MG TAB PO (08:29)
[2019-07-13] MEDS: BALSAM PERU/CASTOR OIL 60 GM TUBE TOP ×3 (08:38→21:36)
[2019-07-13] MEDS: INSULIN GLARGINE [LANTus] (100 UNITS/ML) SYG SC (21:00)
[2019-07-14] MEDS: ACCU-CHEK XX ×2 (02:00→21:17)
[2019-07-14] MEDS: LEVOTHYROXINE 75 MCG TAB PO (06:19)
[2019-07-14] MEDS: Insulin NOVOLOG SS MILD Algorithm (SS with meals and bedtime) SC ×4 (07:53→21:30)
[2019-07-14] MEDS: INSULIN ASPART [NOVOLOG] 3 ML PEN SC ×4 (07:54→19:07)
[2019-07-14] MEDS: DONEPEZIL 10 MG TAB PO (08:19)
[2019-07-14] MEDS: MULTIVITAMINS 30 ML CUP PO (08:19)
[2019-07-14] MEDS: OXYBUTYNIN (XL) 5 MG TAB PO (08:19)
[2019-07-14] MEDS: MIRTAZAPINE 15 MG TAB PO ×2 (08:20→23:21)
[2019-07-14] MEDS: FUROSEMIDE 40 MG TAB PO (08:20)
[2019-07-14] MEDS: ESCITALOPRAM 20 MG TAB PO (08:20)
[2019-07-14] MEDS: ASPIRIN (EC) 81 MG TAB PO (08:21)
[2019-07-14] MEDS: APIXABAN 5 MG TABLET PO ×2 (08:21→21:18)
[2019-07-14] MEDS: LOSARTAN 50 MG TAB PO ×2 (08:21→21:19)
[2019-07-14] MEDS: MEMANTINE 10 MG TAB PO (08:21)
[2019-07-14] MEDS: BALSAM PERU/CASTOR OIL 60 GM TUBE TOP ×3 (08:22→21:20)
[2019-07-14] MEDS: MAGNESIUM HYDROXIDE 30ML CUP PO (13:17)
[2019-07-14] MEDS: ACETAMINOPHEN 325 MG TAB PO (18:32)
[2019-07-14] MEDS: INSULIN GLARGINE [LANTus] (100 UNITS/ML) SYG SC ×2 (22:06→23:22)
[2019-07-15] MEDS: ACCU-CHEK XX (02:00)
[2019-07-15] MEDS: DEXTROSE 50% 50 ML SYRINGE IV (02:26)
[2019-07-15] MEDS: LEVOTHYROXINE 75 MCG TAB PO (06:30)
[2019-07-15] MEDS: Insulin NOVOLOG SS MILD Algorithm (SS with meals and bedtime) SC ×4 (07:30→20:26)
[2019-07-15] MEDS: INSULIN ASPART [NOVOLOG] 3 ML PEN SC ×3 (07:35→17:20)
[2019-07-15] MEDS: MULTIVITAMINS 30 ML CUP PO (08:38)
[2019-07-15] MEDS: MEMANTINE 10 MG TAB PO (08:38)
[2019-07-15] MEDS: DONEPEZIL 10 MG TAB PO (08:38)
[2019-07-15] MEDS: ASPIRIN (EC) 81 MG TAB PO (08:38)
[2019-07-15] MEDS: ESCITALOPRAM 20 MG TAB PO (08:39)
[2019-07-15] MEDS: OXYBUTYNIN (XL) 5 MG TAB PO (08:39)
[2019-07-15] MEDS: LOSARTAN 50 MG TAB PO ×2 (08:40→20:31)
[2019-07-15] MEDS: APIXABAN 5 MG TABLET PO ×2 (08:40→20:32)
[2019-07-15] MEDS: FUROSEMIDE 40 MG TAB PO (08:41)
[2019-07-15] MEDS: MIRTAZAPINE 15 MG TAB PO ×2 (08:41→20:30)
[2019-07-15] MEDS: BALSAM PERU/CASTOR OIL 60 GM TUBE TOP ×5 (08:42→20:33)
[2019-07-15] MEDS: INSULIN GLARGINE [LANTus] (100 UNITS/ML) SYG SC (20:29)
[2019-07-16] MEDS: ACCU-CHEK XX (01:15)
[2019-07-16] MEDS: LEVOTHYROXINE 75 MCG TAB PO (06:06)
[2019-07-16] MEDS: INSULIN ASPART [NOVOLOG] 3 ML PEN SC ×2 (08:18→12:03)
[2019-07-16] MEDS: Insulin NOVOLOG SS MILD Algorithm (SS with meals and bedtime) SC ×2 (08:19→12:04)
[2019-07-16] MEDS: ESCITALOPRAM 20 MG TAB PO (09:04)
[2019-07-16] MEDS: FUROSEMIDE 40 MG TAB PO (09:04)
[2019-07-16] MEDS: MEMANTINE 10 MG TAB PO (09:04)
[2019-07-16] MEDS: DONEPEZIL 10 MG TAB PO (09:04)
[2019-07-16] MEDS: MIRTAZAPINE 15 MG TAB PO (09:04)
[2019-07-16] MEDS: OXYBUTYNIN (XL) 5 MG TAB PO (09:05)
[2019-07-16] MEDS: ASPIRIN (EC) 81 MG TAB PO (09:05)
[2019-07-16] MEDS: APIXABAN 5 MG TABLET PO (09:05)
[2019-07-16] MEDS: LOSARTAN 50 MG TAB PO (09:05)
[2019-07-16] MEDS: MULTIVITAMINS 30 ML CUP PO (09:06)
[2019-07-16] MEDS: BALSAM PERU/CASTOR OIL 60 GM TUBE TOP ×2 (09:06)
[2019-07-16] MEDS ORDERED: hydrALAzine 20 MG INJ IV (16:30)
== END 2019-07-16 16:30 | disposition hospice, inpatient (51) | DRG 291 ==
LOC: 6WM 07-04 17:21 → PP2 07-14 22:39 → E/R 08:50 → 6WM 11:10
PROVIDERS: Internal Medicine
PROC: 5A09357 Assistance with Respiratory Ventilation, Less than 24 Consecutive Hours, Continuous Positive Airway Pressure (ICD-10-PCS; principal; 2019-06-27)
DX: I11.0 Hypertensive heart disease with heart failure (principal); J96.01 Acute respiratory failure with hypoxia; I44.2 Atrioventricular block, complete; E44.1 Mild protein-calorie malnutrition; I47.2 Ventricular tachycardia; I50.33 Acute on chronic diastolic (congestive) heart failure; D63.8 Anemia in other chronic diseases classified elsewhere; E11.9 Type 2 diabetes mellitus without complications; E78.5 Hyperlipidemia, unspecified; E03.9 Hypothyroidism, unspecified; E88.81 Metabolic syndrome and other insulin resistance; F03.90 Unspecified dementia, unspecified severity, without behavioral disturbance, psychotic disturbance, mood disturbance, and anxiety; I48.91 Unspecified atrial fibrillation; R62.7 Adult failure to thrive; R53.81 Other malaise; T40.2X5A Adverse effect of other opioids, initial encounter; Z66 Do not resuscitate; Z68.23 Body mass index [BMI] 23.0-23.9, adult; Z74.01 Bed confinement status; Z95.0 Presence of cardiac pacemaker; Z79.82 Long term (current) use of aspirin; Z79.4 Long term (current) use of insulin; Z79.01 Long term (current) use of anticoagulants
CPT/HCPCS: 36415; 71045; 76604; 80048; 80053; 80162; 82550; 82553; 82947; 82962; 83036; 83605; 83735; 83880; 84100; 84145; 84439; 84443; 84480; 84484; 85025; 85610; 85730; 87040-91; 92526; 92610; 93005; 93306; 93970; 94660; 96374; 97110; 97162; 97530; 99285-25